=== PATIENT | female | born 1960 ===

== ENCOUNTER → 2021-08-26 08:00 | Outpatient (CLI) | payer OTHER ==
[~2021-08-26] VITALS: Ht 121.9 cm; Wt 90.7 kg
[~2021-08-26 08:00] MED LIST: DILANTIN100 MG PO; ECOTRIN81 MG PO; GABAPENTIN400 MG PO; HUMULIN 70100 UNIT/2 SUBCUTANEO; LIPITOR40 MG PO; LOSARTAN POTASS50 MG PO; METFORMIN HCL1000 M2 PO; MULTIPLE VITAM1 EAC2 PO; PLAVIX75 MG PO
== END | disposition home or self-care (01) ==
LOC: LAB 08:00 → EDSTATUS 08-31 09:45 → SURG 08-31 09:45
PROVIDERS: ATTEND Orthopaedic Surgery Orthopaedic Surgery of the Spine
DX: M43.16 Spondylolisthesis, lumbar region (principal); M48.062 Spinal stenosis, lumbar region with neurogenic claudication

== ENCOUNTER 2021-10-19 10:15 | Inpatient (IN) | payer OTHER ==
[~2021-10-19] VITALS: Ht 154.9 cm; Wt 92.5 kg
[~2021-10-19 10:15] MED LIST changes: -ECOTRIN81 MG PO; -LIPITOR40 MG PO; -METFORMIN HCL1000 M2 PO; -PLAVIX75 MG PO
[2021-10-19] MEDS ORDERED: PLAVIX75 MG PO (11:26)
[2021-10-19] MEDS ORDERED: LIPITOR40 MG PO (11:26)
[2021-10-19] MEDS ORDERED: METFORMIN HCL1000 M2 PO (11:26)
[2021-10-19] MEDS ORDERED: ECOTRIN81 MG PO (11:26)
[2021-10-25] MEDS ORDERED: MEDROLPACK PO (07:38)
[2021-10-25] MEDS ORDERED: COLACE100 MG PO (07:38)
[2021-10-25] MEDS ORDERED: AMOX-CLAV 875-1 EACH PO (07:38)
[2021-10-25] MEDS ORDERED: NEURONTIN800 MG PO (07:38)
[2021-10-25] MEDS ORDERED: PERCOCET 5-3251 EACH PO (07:38)
== END 2021-10-26 18:08 | DRG 455 ==
LOC: O/R 10-25 04:45 → PED 10-25 04:45 → SURH 10-25 07:00 → PED 10-25 10:41
PROVIDERS: ADMIT Orthopaedic Surgery Orthopaedic Surgery of the Spine; ATTEND Orthopaedic Surgery Orthopaedic Surgery of the Spine
PROC: 0SG0071 Fusion of Lumbar Vertebral Joint with Autologous Tissue Substitute, Posterior Approach, Posterior Column, Open Approach (ICD-10-PCS; 2021-10-25)
PROC: 0ST20ZZ Resection of Lumbar Vertebral Disc, Open Approach (ICD-10-PCS; 2021-10-25)
PROC: 0QB30ZZ Excision of Left Pelvic Bone, Open Approach (ICD-10-PCS; 2021-10-25)
PROC: 07DR0ZZ Extraction of Iliac Bone Marrow, Open Approach (ICD-10-PCS; 2021-10-25)
PROC: 0SG00A0 Fusion of Lumbar Vertebral Joint with Interbody Fusion Device, Anterior Approach, Anterior Column, Open Approach (ICD-10-PCS; principal; 2021-10-25 07:00)
DX: M43.16 Spondylolisthesis, lumbar region (principal); M48.062 Spinal stenosis, lumbar region with neurogenic claudication; I11.9 Hypertensive heart disease without heart failure; E11.9 Type 2 diabetes mellitus without complications